=== PATIENT | male | born 1985 ===

== ENCOUNTER 2019-08-10 03:36 | Emergency (ER) | payer SELFPAY ==
--- NOTE | 2019-08-10 03:58 | ER ---
Nurse's Notes [facility] Name: Endy Pozo Age: 34 yrs Sex: Male : 1985 Arrival Date: 08/10/2019 Time: 03:40 Bed 3 Private MD: Diagnosis: Alcohol use, unspecified with intoxication, uncomplicated Presentation: 03:45 Chief complaint: EMS states: Report he was found non responsive by PD, upon arrival pt ea was alert and oriented x 3. EMS reported pt drank an unknown amount of ETOH. Coronavirus screen: The patient has NOT traveled to [place] in the past 14 days. Ebola Screen: No symptoms or risks identified at this time. Initial Sepsis Screen: Does the patient meet any 2 criteria? No. Patient's initial sepsis screen is negative. Does the patient have a suspected source of infection? No. Patient's initial sepsis screen is negative. Risk Assessment: Do you want to hurt yourself or someone else? Patient reports no desire to harm self or others. 03:45 Method Of Arrival: EMS: [facility] ea 03:45 Acuity: CAMELIA 3 ea Triage Assessment: 03:52 General: Appears in no apparent distress. Behavior is calm, cooperative, appropriate ea for age, Smells of alcohol. Pain: Denies pain. Neuro: Level of Consciousness is awake, alert, obeys commands, Oriented to person, place, time, situation. Cardiovascular: Patient's skin is warm and dry. Derm: Skin is pink, warm \T\ dry. Historical: - Allergies: 03:51 No Known Allergies; ea - Home Meds: 03:51 None [Active]; ea - PMHx: 03:51 None; ea - PSHx: 03:51 None; ea - Immunization history:: Adult Immunizations up to date. - Social history:: Smoking status: Patient denies any tobacco usage or history of. Screenin:49 Abuse screen: Denies threats or abuse. Nutritional screening: No deficits noted. ea Tuberculosis screening: No symptoms or risk factors identified. Fall Risk None identified. Assessment: 03:53 Reassessment: see triage assessment. ea 04:18 Reassessment: Patient and/or family updated on plan of care and expected duration. Pain ea level reassessed. Patient is alert, oriented x 3, equal unlabored respirations, skin warm/dry/pink. Pt verbalized the understanding of possible adverse effects from leaving AMA. Pt family at facility to take pt home. Pt left ED ambulatory accompanied by family. Vital Signs: 03:45 BP 147 / 100; Pulse 114; Resp 20; Temp 97.6; Pulse Ox 98% ; Weight 72.57 kg; Height 5 ea ft. 9 in. (175.26 cm); 03:50 BP 127 / 75; Pulse 109; Resp 19; Pulse Ox 100% ; ea 03:45 Body Mass Index 23.63 (72.57 kg, 175.26 cm) ea ED Course: 03:40 Patient arrived in ED. tw4 03:45 Erin Gomez RN is Primary Nurse. ea 03:45 Boby Guy MD is Attending Physician. tw4 03:49 Triage completed. ea 03:49 Patient has correct armband on for positive identification. Bed in low position. Call ea light in reach. Side rails up X2. 03:49 Arm band placed on right wrist. Patient placed in an exam room, on a stretcher, on ea pulse oximetry. 04:19 No provider procedures requiring assistance completed. Patient did not have IV access ea during this emergency room visit. Administered Medications: 03:55 Not Given (Patient Refused): NS 0.9% 1000 ml IV at 1 bolus Per protocol; 1000 mL bolus ea Outcome: 04:19 AMA ea 04:19 Condition: stable 04:19 Patient left the ED. ea Signatures: Erin Gomez RN RN ea Wadley, Terrence, MD MD tw4
[2019-08-10 04:24] VITALS: TEMP 97.6
[2019-08-10 04:26] VITALS: BP 127/75; O2SAT 100
--- NOTE | 2019-08-11 04:22 | EDPHYS ---
Physician Documentation [facility] Name: Endy Pozo Age: 34 yrs Sex: Male : 1985 Arrival Date: 08/10/2019 Time: 03:40 Bed 3 Private MD: ED Physician Boby Guy HPI: 04:19 This 34 yrs old Male presents to ER via EMS with complaints of ALTERED MENTAL STATUS. tw4 04:19 The patient presents with decreased mental status. Onset: The symptoms/episode tw4 began/occurred just prior to arrival. Possible causes: alcohol, has had a recent alcohol binge. Associated signs and symptoms: The patient has no apparent associated signs or symptoms. Current symptoms: In the emergency department the patient's symptoms have resolved, the patient is alert and fully oriented, has normal speech, has normal responsiveness, has no confusion. Patient's baseline: Neuro: alert and fully oriented, Motor: no deficits, Ambulation: walks without assistance, Speech: normal. EMS arrived to [facility] from [facility] due decreased responsiveness and uncooperative nature. Pt en route was alert and oriented times three. Pt admitted to ETOH intake. Historical: - Allergies: 03:51 No Known Allergies; ea - Home Meds: 03:51 None [Active]; ea - PMHx: 03:51 None; ea - PSHx: 03:51 None; ea - Immunization history:: Adult Immunizations up to date. - Social history:: Smoking status: Patient denies any tobacco usage or history of. ROS: 04:19 Constitutional: Negative for fever, chills, and weight loss, Eyes: Negative for injury, tw4 pain, redness, and discharge, Cardiovascular: Negative for chest pain, palpitations, and edema, Respiratory: Negative for shortness of breath, cough, wheezing, and pleuritic chest pain, Abdomen/GI: Negative for abdominal pain, nausea, vomiting, diarrhea, and constipation, Back: Negative for injury and pain, MS/Extremity: Negative for injury and deformity, Skin: Negative for injury, rash, and discoloration. 04:19 Neuro: Positive for altered mental status, Negative for dizziness, gait disturbance, headache, hearing loss, loss of consciousness, numbness, seizure activity, speech changes, syncope, near syncope, tingling, tinnitus, tremor, visual changes, weakness. Exam: 04:23 Constitutional: This is a well developed, well nourished patient who is awake, alert, tw4 and in no acute distress. Head/Face: Normocephalic, atraumatic. Chest/axilla: Normal chest wall appearance and motion. Nontender with no deformity. No lesions are appreciated. Respiratory: Lungs have equal breath sounds bilaterally, clear to auscultation and percussion. No rales, rhonchi or wheezes noted. No increased work of breathing, no retractions or nasal flaring. Abdomen/GI: Soft, non-tender, with normal bowel sounds. No distension or tympany. No guarding or rebound. No evidence of tenderness throughout. Back: No spinal tenderness. No costovertebral tenderness. Full range of motion. Skin: Warm, dry with normal turgor. Normal color with no rashes, no lesions, and no evidence of cellulitis. MS/ Extremity: Pulses equal, no cyanosis. Neurovascular intact. Full, normal range of motion. Neuro: Awake and alert, GCS 15, oriented to person, place, time, and situation. Cranial nerves II-XII grossly intact. Motor strength 5/5 in all extremities. Sensory grossly intact. Cerebellar exam normal. Normal gait. 04:23 Cardiovascular: Rate: tachycardic, actual rate is 121 bpm, Rhythm: regular, Pulses: no pulse deficits are appreciated. Vital Signs: 03:45 BP 147 / 100; Pulse 114; Resp 20; Temp 97.6; Pulse Ox 98% ; Weight 72.57 kg; Height 5 ea ft. 9 in. (175.26 cm); 03:50 BP 127 / 75; Pulse 109; Resp 19; Pulse Ox 100% ; ea 03:45 Body Mass Index 23.63 (72.57 kg, 175.26 cm) ea MDM: 03:45 Patient medically screened. tw4 04:19 Differential Diagnosis: electrolyte abnormality, alcohol intoxication, overdose, volume tw4 depletion, drug abuse. Data reviewed: vital signs, nurses notes. Data interpreted: Pulse oximetry: Interpretation: normal. Counseling: I had a detailed discussion with the patient and/or guardian regarding: the historical points, exam findings, and any diagnostic results supporting the discharge/admit diagnosis. Refusal of service: The patient/guardian displays adequate decision making capability and despite a detailed discussion of alternatives, benefits, risks, and consequences refuses: all lab tests, Medications. Administered Medications: 03:55 Not Given (Patient Refused): NS 0.9% 1000 ml IV at 1 bolus Per protocol; 1000 mL bolus ea Disposition: 08/10/19 03:57 Patient has left against medical advice. Impression: Alcohol use, unspecified with intoxication, uncomplicated. - Patients states they are going to Home. - Condition is Stable. - Discharge Instructions: Alcohol Intoxication, Alcohol Use Disorder. Follow up: Private Physician; When: Upon discharge from the Emergency Department; Reason: Recheck today's complaints, Continuance of care, Re-evaluation by your physician. - Problem is new. - Symptoms have improved. Signatures: Dispatcher [employer] EDMS Erin Gomez RN RN ea Wadley, Terrence, MD MD tw4 Corrections: (The following items were deleted from the chart) 04:19 03:57 08/10/2019 03:57 Patients has left against medical advice. Impression: Alcohol ea use, unspecified with intoxication, uncomplicated. Patient states they are going to Home. Condition is Stable. Follow up: Private Physician; When: Upon discharge from the Emergency Department; Reason: Recheck today's complaints, Continuance of care, Re-evaluation by your physician. Problem is new. Symptoms have improved. tw4 04:23 04:19 Constitutional: This is a well developed, well nourished patient who is awake, tw4 alert, and in no acute distress. Head/Face: Normocephalic, atraumatic. Chest/axilla: Normal chest wall appearance and motion. Nontender with no deformity. No lesions are appreciated. Cardiovascular: Regular rate and rhythm with a normal S1 and S2. No gallops, murmurs, or rubs. Normal PMI, no JVD. No pulse deficits. Respiratory: Lungs have equal breath sounds bilaterally, clear to auscultation and percussion. No rales, rhonchi or wheezes noted. No increased work of breathing, no retractions or nasal flaring. Abdomen/GI: Soft, non-tender, with normal bowel sounds. No distension or tympany. No guarding or rebound. No evidence of tenderness throughout. Back: No spinal tenderness. No costovertebral tenderness. Full range of motion. MS/ Extremity: Pulses equal, no cyanosis. Neurovascular intact. Full, normal range of motion. Neuro: Awake and alert, GCS 15, oriented to person, place, time, and situation. Cranial nerves II-XII grossly intact. Motor strength 5/5 in all extremities. Sensory grossly intact. Cerebellar exam normal. Normal gait. tw4
== END 2019-08-10 04:19 | disposition left against medical advice (07) ==
LOC: ER 03:36
DX: F10.929 Alcohol use, unspecified with intoxication, unspecified (principal)
CPT/HCPCS: 99283